=== PATIENT | male | born 1960 | race African-American/Black ===

== ENCOUNTER 2020-07-18 10:19 | Outpatient (CLI) | payer OTHER ==
[2020-07-18 10:42] LABS: BASOPHILS % (AUTO) 1 % (0-1); EOSINOPHILS % (AUTO) 1 % (1-7); LYMPHOCYTES % (AUTO) 46 % (22-44); MEAN CORPUSCULAR HGB CONC 32.6 g/dL (33.2-36.2); MEAN PLATELET VOLUME 7.8 fL (7.4-10.4); MONOCYTES % (AUTO) 8 % (2-9); NEUTROPHILS % (AUTO) 44 % (42-75); PLATELET COUNT 232 x10^3/uL (130-400); RED BLOOD COUNT 4.54 x10^6/uL (4.38-5.82); RED CELL DISTRIBUTION WIDTH 13.6 % (9.4-14.8)
[2020-07-18 10:57] LABS: MD SCAN
[2020-07-18 11:01] LABS: ALBUMIN 3.6 g/dL (3.4-5.0); BILIRUBIN, DIRECT 0.2 mg/dL (0.1-0.2)
[2020-07-18 11:28] LABS: BILIRUBIN,INDIRECT 0.4 mg/dL (0.0-2.0); BILIRUBIN,TOTAL 0.6 mg/dL (0.2-1.0); TOTAL PROTEIN 7.5 g/dL (6.4-8.2)
== END 2020-07-18 23:59 | disposition home or self-care (01) ==
LOC: LAB 10:19
PROVIDERS: ATTEND Psychiatry & Neurology Geriatric Psychiatry
DX: F25.0 Schizoaffective disorder, bipolar type (principal)
CPT/HCPCS: 36415; 80076; 80164; 85025

== ENCOUNTER 2020-11-05 04:20 | Emergency (ER) | payer OTHER ==
[~2020-11-05] VITALS: Ht 177.8 cm; Wt 55.0 kg
--- NOTE | 2020-11-05 04:56 | NUR ---
PT IN [place]. AWAITING RETURN.
[2020-11-05] MEDS ORDERED: ONDANSETRON 2MG/ML, 2ML IVPush ONE (05:00)
[2020-11-05] MEDS ORDERED: SODIUM CHLORIDE FLUSH 10ML SYR IVF ONE (05:00)
[2020-11-05] MEDS ORDERED: MORPHINE SULFATE 4 MG/ML, 1ML IVPush PRN (05:00)
[2020-11-05] MEDS ORDERED: ONDANSETRON 2MG/ML, 2ML ONE (05:08)
[2020-11-05] MEDS ORDERED: MORPHINE SULFATE 4 MG/ML, 1ML ONE (05:09)
[2020-11-05 06:00] LABS: BASOPHILS % (AUTO) 2 % (0-1); EOSINOPHILS % (AUTO) 3 % (1-7); LYMPHOCYTES % (AUTO) 32 % (22-44); MEAN CORPUSCULAR HEMOGLOBIN 28.3 pg (27.5-34.5); MEAN CORPUSCULAR HGB CONC 32.9 g/dL (33.2-36.2); MEAN PLATELET VOLUME 7.8 fL (7.4-10.4); MONOCYTES % (AUTO) 8 % (2-9); NEUTROPHILS % (AUTO) 56 % (42-75); PLATELET COUNT 236 x10^3/uL (130-400); RED BLOOD COUNT 4.59 x10^6/uL (4.38-5.82); RED CELL DISTRIBUTION WIDTH 13.8 % (9.4-14.8)
--- NOTE | 2020-11-05 06:00 | NUR ---
IV ESTABLISHED, BLOOD DRAWN, URINE SENT TO LAB, PT. MEDICATED PER OCT. CONTINUOUS PULSE OX AND B/P MONITORS IN PLACE. CALL LIGHT IN REACH AND PT. EDUCATED ON USE. ALL MONITORS IN PLACE.
[2020-11-05 06:14] LABS: CALCIUM 8.5 mg/dL (8.5-10.1); CHLORIDE 109 mmol/L (98-107)
[2020-11-05 06:18] LABS: MD NO
[2020-11-05 06:20] LABS: ALANINE AMINOTRANSFERASE 22 U/L (12-78); ALBUMIN 3.6 g/dL (3.4-5.0); ALKALINE PHOSPHATASE 60 U/L (45-117); ANION GAP 5 mmol/L (5-15); BILIRUBIN,TOTAL 0.4 mg/dL (0.2-1.0); CREATININE 1.18 mg/dL (0.7-1.3); TOTAL PROTEIN 7.1 g/dL (6.4-8.2)
[2020-11-05 06:30] LABS: MICROSCOPIC NOT IND
[2020-11-05] MEDS ORDERED: OMNIPAQUE 350 MG/ML, 100ML BOTTLE ONE (06:50)
--- NOTE | 2020-11-05 06:59 | NUR ---
Handoff report received from DANK RN. Pt back from CT, pain improved. Provided with blanket. VS updated.
[2020-11-05 07:30] VITALS: BP 118/75
== END 2020-11-05 07:32 | disposition home or self-care (01) ==
LOC: ED 07:24
DX: R10.32 Left lower quadrant pain (principal); N50.812 Left testicular pain
CPT/HCPCS: 36415; 74177; 76870; 80053; 81003; 85025; 96374; 96375; 99285; J2270; J2405; Q9967

== ENCOUNTER → 2020-11-16 | Outpatient (CLI) | payer OTHER | END | disposition home or self-care (01) | LOC: LAB 10:38 | PROVIDERS: ATTEND Surgery | DX: R10.9 Unspecified abdominal pain (principal) | CPT/HCPCS: 36415; 82378 ==